=== PATIENT | male | born 1950 | race Hispanic/Latino ===

== ENCOUNTER → 2022-01-10 | Outpatient (CLI) | payer MEDICARE ==
[2022-01-09 10:35] LABS: BASOPHILS # (AUTO) 0.1 (0.0-0.1); BASOPHILS % 0.8 % (0.0-1.0); EOSINOPHILS # (AUTO) 0.1 (0.0-0.4); EOSINOPHILS % 0.8 % (0.0-6.0); HEMATOCRIT 45.1 % (38.2-49.6); HEMOGLOBIN 14.6 g/dL (14.0-18.0); LYMPHOCYTES # (AUTO) 2.1 (1.0-3.2); LYMPHOCYTES % 33.1 % (18.0-39.1); MEAN CORPUSCULAR HEMOGLOBIN 29.5 pg (28-32); MEAN CORPUSCULAR HGB CONC 32.4 g/dL (31-35); MEAN CORPUSCULAR VOLUME 91.1 fL (81-99); MONOCYTES # (AUTO) 0.4 (0.2-0.8); MONOCYTES % 6.3 % (4.4-11.3); NEUTROPHILS # (AUTO) 3.6 (2.1-6.9); NEUTROPHILS % 58.8 % (38.7-80.0); PLATELET COUNT 180 x10e3/uL (140-360); RED BLOOD COUNT 4.95 x10e6/uL (4.3-5.7); RED CELL DISTRIBUTION WIDTH 13.8 % (11.7-14.4)
[2022-01-09 10:49] LABS: INR 0.88; PROTHROMBIN TIME 12.8 seconds (11.9-14.5)
[2022-01-09 10:50] LABS: PARTIAL THROMBOPLASTIN TIME 30.2 seconds (23.8-35.5)
[~2022-01-10] MED LIST: FENTANYL CITRATE/PF 100MCG/2 ML INJ ONE; HYDROCODONE/APAP 5MG-325MG TAB ONE; LIDOCAINE HCL 1% LOCAL INJ 20 ML VIAL ONE; MIDAZOLAM HCL 2 MG/2 ML VIAL ONE; SODIUM CHLORIDE 0.9% 250ML 250 ML ONE
[2022-01-10 09:31] LABS: ANION GAP 13.6 mmol/L (8-16); CALCIUM 8.6 mg/dL (8.4-10.2); CREATININE, SERUM 1.82 mg/dL (0.72-1.25); POTASSIUM 4.6 mmol/L (3.5-5.1)
== END ==
LOC: CT 08:06
PROVIDERS: ATTEND Internal Medicine Critical Care Medicine
DX: R91.8 Other nonspecific abnormal finding of lung field (principal); Z20.822 Contact with and (suspected) exposure to COVID-19
CPT/HCPCS: 0223U; 10009; 32408; 36415 ×2; 71045; 77012; 80048; 85025; 85610; 85730; 88172; 88173; 88305; 88342; J2001; J2250; J3010; J7050; 88300; 88304